=== PATIENT | male | born 2000 | race Caucasian/White ===

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

== ENCOUNTER 2021-02-25 10:10 | Emergency (ER) | payer MEDICAID ==
[~2021-02-25] VITALS: Ht 170.2 cm; Wt 59.0 kg
[~2021-02-25 10:10] MED LIST changes: +CIPROFLOXACN500 MG PO; +ZOFRAN4 MG/TAB PO
[2021-02-25 10:59] LABS: HEMATOCRIT 52.3 % (39.0-50.0); HEMOGLOBIN 17.8 g/dl (14.0-18.0); IMMATURE GRANULOCYTES 0.5 % (0.0-5.0); MEAN CELL VOLUME 88.5 fL CALC (80.0-100.0); MEAN CORPUSCULAR HGB 30.1 pG CALC (26.0-32.0); NEUT# 5.2 thou/uL (1.82-7.42); RED BLOOD COUNT 5.91 mill/uL (4.70-6.10); RED CELL DISTRI WIDTH 11.7 % (11.5-15.5)
[2021-02-25 11:04] LABS: ALBUMIN 4.4 g/dL (3.2-5.0); ALKALINE PHOSPHATASE 77 u/l (38-126); ANION GAP 15 (6-22 (CALC)); BUN 19 mg/dL (8-21); BUN/CREATININE RATIO 23 (12-20 (CALC)); CARBON DIOXIDE 25 mmol/l (22-30); CHLORIDE 101 mmol/l (95-108); CREATININE 0.8 mg/dL (0.7-1.3); GFR > 60 ML/MIN (>=60 (CALC)); GFR FOR AFR.AMER. > 60 ML/MIN (>=60 (CALC)); LIPASE 56 u/l (23-300); POTASSIUM 4.1 mmol/l (3.5-5.1); SGOT/AST 24 u/l (17-59); SODIUM 137 mmol/l (137-146); TOTAL PROTEIN 7.8 g/dL (6.3-8.2)
[2021-02-25 11:05] LABS: BILIRUBIN, TOTAL 0.8 mg/dL (0.0-1.4)
[2021-02-25 11:34] LABS: URINE BILIRUBIN - DIPSTICK NEGATIVE (NEGATIVE); URINE BLOOD DIPSTICK NEGATIVE (NEGATIVE); URINE COLOR YELLOW; URINE GLUCOSE - DIPSTICK NEGATIVE (NEGATIVE); URINE KETONE 15 mg/dL (NEGATIVE); URINE LEUK ESTERASE NEGATIVE (NEGATIVE); URINE PROTEIN - DIPSTICK NEGATIVE (NEG-TRACE); URINE SPECIFIC GRAVITY 1.025
[2021-02-25 11:35] LABS: URINE NITRITE - DIPSTICK NEGATIVE (Negative)
[2021-02-25] MEDS ORDERED: ZOFRAN4 M1 PO (11:41)
[2021-02-25 12:18] VITALS: BP 117/77
== END 2021-02-25 12:18 | disposition home or self-care (01) ==
LOC: ED 10:10
PROVIDERS: Family Medicine
DX: R10.84 Generalized abdominal pain (principal)

== ENCOUNTER 2022-05-18 21:33 | Observation (INO) | payer MEDICAID ==
[~2022-05-18] VITALS: Ht 170.2 cm; Wt 61.0 kg
[~2022-05-18 21:33] MED LIST changes: +ZOFRAN4 M1 PO
[2022-05-18 22:54] VITALS: BP 116/73
[2022-05-18 23:00] VITALS: BP 109/71
[2022-05-18 23:15] VITALS: BP 123/80
[2022-05-18 23:31] VITALS: BP 159/105
[2022-05-18 23:40] LABS: HEMATOCRIT 47.9 % (39.0-50.0); HEMOGLOBIN 16.8 g/dl (14.0-18.0); IMMATURE GRANULOCYTES 0.1 % (0.0-5.0); MEAN CELL VOLUME 88.7 fL CALC (80.0-100.0); MEAN CORPUSCULAR HGB 31.1 pG CALC (26.0-32.0); MEAN CORPUSCULAR HGB CONC 35.1 g/dL CAL (32.0-36.0); NEUT# 4.86 thou/uL (1.82-7.42); RED BLOOD COUNT 5.4 mill/uL (4.70-6.10); RED CELL DISTRI WIDTH 11.1 % (11.5-15.5)
[2022-05-18 23:42] LABS: URINE BILIRUBIN - DIPSTICK NEGATIVE (NEGATIVE); URINE BLOOD DIPSTICK NEGATIVE (NEGATIVE); URINE COLOR YELLOW; URINE GLUCOSE - DIPSTICK NEGATIVE (NEGATIVE); URINE KETONE NEGATIVE (NEGATIVE); URINE LEUK ESTERASE NEGATIVE (NEGATIVE); URINE NITRITE - DIPSTICK NEGATIVE (Negative); URINE PROTEIN - DIPSTICK NEGATIVE (NEG-TRACE); URINE SPECIFIC GRAVITY 1.015
[2022-05-18 23:43] VITALS: BP 129/67
[2022-05-18 23:45] VITALS: BP 121/72
[2022-05-18 23:51] LABS: ALBUMIN 4.9 g/dL (3.2-5.0); ALKALINE PHOSPHATASE 77 u/l (38-126); BUN 14 mg/dL (9-20); BUN/CREATININE RATIO 18 (12-20 (CALC)); CHLORIDE 99 mmol/l (95-108); CREATININE 0.8 mg/dL (0.7-1.3); GFR FOR AFR.AMER. > 60 ML/MIN (>=60 (CALC)); GFR OTHER RACES > 60 ML/MIN (>=60 (CALC)); LIPASE 63 u/l (23-300); POTASSIUM 3.9 mmol/l (3.5-5.1); SGOT/AST 22 u/l (17-59); SODIUM 139 mmol/l (137-146); TOTAL PROTEIN 8.3 g/dL (6.3-8.2)
[2022-05-18 23:58] LABS: ANION GAP 13 (6-22 (CALC)); CARBON DIOXIDE 31 mmol/l (22-30)
[2022-05-18 23:59] LABS: BILIRUBIN, TOTAL 0.4 mg/dL (0.0-1.4)
[2022-05-19] VITALS (11 sets, daily range): BP systolic 107–134; BP diastolic 60–78
[2022-05-19 05:33] LABS: HEMATOCRIT 43.2 % (39.0-50.0); HEMOGLOBIN 15.4 g/dl (14.0-18.0); MEAN CORPUSCULAR HGB 31.4 pG CALC (26.0-32.0); MEAN CORPUSCULAR HGB CONC 35.6 g/dL CAL (32.0-36.0); NEUT# 4.45 thou/uL (1.82-7.42); RED BLOOD COUNT 4.91 mill/uL (4.70-6.10); RED CELL DISTRI WIDTH 11.4 % (11.5-15.5)
[2022-05-19] MEDS ORDERED: PERCOCET 5/321 COMBO PO (13:18)
== END 2022-05-19 16:10 | disposition home or self-care (01) ==
LOC: ED 21:33 → MS2 05-19 00:53
PROVIDERS: Family Medicine; ADMIT Surgery; ATTEND Surgery
DX: K35.30 Acute appendicitis with localized peritonitis, without perforation or gangrene (principal); Z20.822 Contact with and (suspected) exposure to COVID-19
CPT/HCPCS: G0378; J0131; Q9967

== ENCOUNTER 2023-04-01 11:46 | Emergency (ER) | payer BC ==
[2023-04-01] VITALS (10 sets, daily range): BP systolic 105–134; BP diastolic 69–85
[~2023-04-01] VITALS: Ht 170.2 cm; Wt 61.0 kg
[~2023-04-01 11:46] MED LIST changes: +PERCOCET 5/321 COMBO PO
[2023-04-01] MEDS ORDERED: MOTRIN400 MG/TAB PO (13:48)
== END 2023-04-01 14:37 | disposition home or self-care (01) | DRG 556 ==
LOC: ED 11:46
PROC: 2W3CX1Z Immobilization of Right Lower Arm using Splint (ICD-10-PCS; principal; 2023-04-01)
DX: M25.531 Pain in right wrist (principal)